=== PATIENT | female | born 1985 | race Caucasian/White ===

== ENCOUNTER 2017-06-23 10:10 | Emergency (ER) | payer OTHER ==
[~2017-06-23] VITALS: Ht 162.6 cm; Wt 81.6 kg
--- NOTE | ~2017-06-23 | CT4 ---
[facility] A Service of [facility] RADIOLOGY TEXT RESULTS PATIENT: WHIT ZEPEDA LOCATION: [facility] : 83 UNIT #: [id number] AGE: [address]: Andrew Merida MD SEX: F ORDER DR: [id number] [facility] [address] [place], [place] [address] [id number] E MR#: [id number] Acc #: [id number] NAME: WHIT ZEPEDA : 1985 SEX: F STUDY DATE/TIME: 06/23/2017 12:51 UNIT: [facility] ROOM: STUDY DESCRIPTION: CT Abd and Pelv Wo Cont Attending Physician: Andrew Merida M.D. Ordering Physician: Andrew Merida M.D. Primary Care Physician: [facility], [facility]. MEDICAL IMAGING REPORT This report is preliminary unless electronic signature is present EXAM CT scan of the abdomen and pelvis without contrast HISTORY Vomiting nausea diarrhea for 5 days. Upper abdominal pain. COMPARISON None. TECHNIQUE Axial 3 mm images were obtained through the abdomen and pelvis without IV or oral contrast. This CT exam was performed with one or more of the following radiation dose reduction techniques: automatic control, adjustment of mA and/or kV according to patient size, and iterative reconstruction. FINDINGS Lung bases are clear. The liver, gallbladder, spleen, pancreas and adrenal glands are normal. The left kidney is normal. The right kidney has a nonobstructing 1 mm stone and there is mild right hydronephrosis. The right ureter is slightly dilated. It is difficult to follow the ureter all the way to the bladder. I do not see any definite stones. The aorta is normal in size. There is no adenopathy. The bowel including the appendix appears normal. Uterus and adnexal regions and bladder are normal. The bones are unremarkable. IMPRESSION 1. There is a 1 mm nonobstructing stone in the right kidney right renal pelvis and upper ureter is slightly prominent but I cannot identify any definite ureteral stones. 2. The appendix is normal. 3. The study is otherwise normal. [facility] A Service of [facility] RADIOLOGY TEXT RESULTS PATIENT: WHIT ZEPEDA LOCATION: [facility] : 83 UNIT #: [id number] AGE: [address]: Andrew Merida MD SEX: F ORDER DR: Dictated by... Tobias Patel M.D. THIS IS AN ELECTRONICALLY VERIFIED REPORT Tobias Patel M.D. at 06/24/2017 9:36 PM BAHMAN/catherine TD: 06/24/2017 04:15 JOB #: [id number] MEDICAL IMAGING REPORT Page 1 of 1 COPY
[~2017-06-23 10:10] MED LIST: AMOXICILLIN PO; VICODIN 5/500 T1 TAB PO
[2017-06-23 10:39] LABS: URINE SOURCE CLEAN CATCH
[2017-06-23 10:48] LABS: URINE APPEARANCE CLEAR; URINE BLOOD 2+ (NEG); URINE COLOR DK YELLOW; URINE GLUCOSE NEG (NEG); URINE KETONE TRACE (NEG); URINE LEUKOCYTE ESTERASE NEG (NEG); URINE NITRATE NEG (NEG); URINE PH 6.5 (5-8); URINE PROTEIN 2+ (NEG); URINE SPECIFIC GRAVITY 1.024 (1.003-1.035)
[2017-06-23 10:50] LABS: URINE SQUAMOUS EPITHELIAL CELL FEW /[HPF]
[2017-06-23 11:02] LABS: BASOPHIL# 0.1 X10e3 (0-0.3); BASOPHIL% 0.8 % (0-2.5); EOSINOPHIL# 0.3 X10e3 (0-0.7); EOSINOPHIL% 2.4 % (0.0-7.0); HEMATOCRIT 44.1 % (35.0-45.0); HEMOGLOBIN 15.1 gm/dL (12.0-16.0); LYMPHOCYTE# 1.9 X10e3 (1.0-3.5); LYMPHOCYTE% 17.1 % (17.0-45.0); MEAN CORPUSCULAR HEMOGLOBIN 31.8 PG (28-34); MEAN CORPUSCULAR HGB CONC 34.1 g/dL (30-36); MEAN PLATELET VOLUME 8.8 FL (6.5-11.5); MONOCYTE# 0.9 X10e3 (0-1.0); MONOCYTE% 8.3 % (3.0-12.0); NEUTROPHIL# 7.8 X10e3 (1.5-7.1); NEUTROPHIL% 71.4 % (40-75); PLATELET COUNT 287 X10e3 (140-420); RED BLOOD COUNT 4.74 X10e (3.90-5.30); RED CELL DISTRIBUTION WIDTH 14.2 % (11.0-15.5); WHITE BLOOD COUNT 10.9 X10e3 (4.0-10.5)
[2017-06-23 11:04] LABS: URINE BILIRUBIN NEG (NEG)
[2017-06-23 11:08] LABS: CULTURE INDICATED? YES; URINE BACTERIA AUWI 1+ (NEGATIVE); URINE MUCUS PRESENT
[2017-06-23 11:13] LABS: DIFF IND NO
[2017-06-23 11:39] LABS: ALBUMIN SERUM 4.5 g/dL (3.5-5.0); BILIRUBIN, DIRECT 0.1 mg/dL (0.0-0.2); BILIRUBIN,TOTAL 1.1 mg/dL (0.2-2.0); BUN/CREATININE RATIO 11.66; CREATININE SERUM 0.6 mg/dL (0.6-1.4); GLOM FILT RATE Estimated 119.8 mL/min (>60); POTASSIUM 3.1 mmol/L (3.5-5.1); PROTEIN TOTAL SERUM 7.6 g/dL (6.0-8.3)
== END 2017-06-23 14:17 | disposition home or self-care (01) ==
LOC: CED 10:10
DX: R10.31 Right lower quadrant pain (principal); R11.2 Nausea with vomiting, unspecified; F17.200 Nicotine dependence, unspecified, uncomplicated
CPT/HCPCS: 36415; 74176; 80048; 80076; 81003; 83690; 84703; 85025; 87086; 96361; 96374; 99284; J2405

== ENCOUNTER 2017-07-08 10:08 | Emergency (ER) | payer OTHER ==
[~2017-07-08] VITALS: Ht 162.6 cm; Wt 81.6 kg
[2017-07-08 11:13] LABS: URINE SOURCE CLEAN CATCH
[2017-07-08 11:18] LABS: URINE APPEARANCE CLOUDY; URINE COLOR DK YELLOW; URINE GLUCOSE NEG (NEG); URINE KETONE TRACE (NEG); URINE LEUKOCYTE ESTERASE TRACE (NEG); URINE NITRATE NEG (NEG); URINE PH 6.5 (5-8); URINE PROTEIN 2+ (NEG); URINE SPECIFIC GRAVITY 1.031 (1.003-1.035)
[2017-07-08 11:19] LABS: URINE BLOOD NEG (NEG)
[2017-07-08 11:21] LABS: CULTURE INDICATED? YES; URINE BACTERIA AUWI 1+ (NEGATIVE); URINE SQUAMOUS EPITHELIAL CELL FEW /[HPF]
[2017-07-08 11:32] LABS: URINE BILIRUBIN POS (NEG)
[2017-07-08 11:34] LABS: URINE MUCUS PRESENT
[2017-07-08 13:24] LABS: BASOPHIL# 0.1 X10e3 (0-0.3); BASOPHIL% 0.4 % (0-2.5); EOSINOPHIL# 0.1 X10e3 (0-0.7); EOSINOPHIL% 0.5 % (0.0-7.0); HEMATOCRIT 46.6 % (35.0-45.0); HEMOGLOBIN 15.6 gm/dL (12.0-16.0); LYMPHOCYTE# 1.7 X10e3 (1.0-3.5); LYMPHOCYTE% 14.7 % (17.0-45.0); MEAN CELL VOLUME 93.8 FL (83-96); MEAN CORPUSCULAR HEMOGLOBIN 31.3 PG (28-34); MEAN CORPUSCULAR HGB CONC 33.4 g/dL (30-36); MEAN PLATELET VOLUME 9.5 FL (6.5-11.5); MONOCYTE# 0.9 X10e3 (0-1.0); MONOCYTE% 7.9 % (3.0-12.0); NEUTROPHIL# 8.7 X10e3 (1.5-7.1); NEUTROPHIL% 76.5 % (40-75); PLATELET COUNT 261 X10e3 (140-420); RED BLOOD COUNT 4.97 X10e (3.90-5.30); RED CELL DISTRIBUTION WIDTH 14.3 % (11.0-15.5); WHITE BLOOD COUNT 11.4 X10e3 (4.0-10.5)
[2017-07-08 13:25] LABS: DIFF IND NO
[2017-07-08 14:21] LABS: ALBUMIN SERUM 5.1 g/dL (3.5-5.0); BILIRUBIN,TOTAL 1.1 mg/dL (0.2-2.0); CALCIUM SERUM 9.6 mg/dL (8.4-10.2); CREATININE SERUM 0.7 mg/dL (0.6-1.4); GLOM FILT RATE Estimated 113.8 mL/min (>60); POTASSIUM 3.2 mmol/L (3.5-5.1); PROTEIN TOTAL SERUM 8.6 g/dL (6.0-8.3)
[2017-07-08 14:40] LABS: AMPHETAMINE NEG (NEG); BARBITURATES NEG (NEG); BENZODIAZEPINES NEG (NEG); COCAINE NEG (NEG); MARIJUANA POS (NEG); OPIATES POS (NEG); TRICYCLIC ANTIDEPRESSANTS NEG (NEG); U METHADONE NEG (NEG)
== END 2017-07-08 15:20 | disposition home or self-care (01) ==
LOC: CED 10:08
PROVIDERS: Emergency Medicine
DX: R11.2 Nausea with vomiting, unspecified (principal); K21.9 Gastro-esophageal reflux disease without esophagitis; F17.200 Nicotine dependence, unspecified, uncomplicated
CPT/HCPCS: 36415; 80053; 80307; 81003; 83690; 84703; 85025; 87086; 96361; 96374; 96375; 99284; C9113; J2270; J2405; J2765